=== PATIENT | female | born 1970 | race Caucasian/White ===

== ENCOUNTER → 2017-06-16 | Outpatient (CLI) | payer MEDICARE ==
[~2017-06-16] MED LIST: ADDERALL 20 MG20 MG PO; ATIVAN1 MG PO; BIRTH CONTROL; CIPROFLOXACIN500 M1 PO; DEXTROAMPHETAMIN5 M2 PO; DILTIAZEM ER180 M1 PO; FLAGYL500 MG PO; HYDROCODONE-AP1 EAC6 PO; HYDROXYCHLOROQ200 M1 PO; KEFLEX500 MG PO; KEPPRA 500 MG500 M1 PO; LYRICA; LYRICA 50 MG50 MG; LYRICA 50 MG50 MG PO; NAPROSYN375 MG PO; NORCO 5-325 TA1 EACH PO; OXYBUTYNIN 5 MG5 M2; OXYCODON-ACETA1 EAC1 PO; PHENAZOPYRIDIN200 M2 PO; PHENERGAN 25 MG25 M1 PO; PREDNISONE 5 MG5 M1 PO; SALAGEN5 MG; VIMPAT100 MG; WELLBUTRIN XL300 M1; WELLBUTRIN XL300 MG PO; ZANAFLEX4 MG PO
== END ==
LOC: M.MRI 14:30
DX: M47.22 Other spondylosis with radiculopathy, cervical region (principal); M48.02 Spinal stenosis, cervical region

== ENCOUNTER → 2017-10-13 | Outpatient (CLI) | payer MEDICARE | LOC: M.RAD 09-21 13:30 | DX: M25.561 Pain in right knee (principal); M25.562 Pain in left knee; N91.2 Amenorrhea, unspecified; Z78.0 Asymptomatic menopausal state ==

== ENCOUNTER 2017-10-15 21:42 | Emergency (ER) | payer MEDICARE, MEDICAID ==
[~2017-10-15] VITALS: Ht 162.6 cm; Wt 70.3 kg
[2017-10-16 00:48] VITALS: BP 138/81
== END 2017-10-16 00:49 | disposition home or self-care (01) ==
LOC: M.ERS 21:42
DX: M79.605 Pain in left leg (principal); R51 Headache; I10 Essential (primary) hypertension; Z88.2 Allergy status to sulfonamides

== ENCOUNTER → 2019-01-23 | Outpatient (CLI) | payer MEDICARE | LOC: M.RAD 01-18 12:48 | DX: S92.909 Unspecified fracture of unspecified foot (principal); Z78.0 Asymptomatic menopausal state; N91.2 Amenorrhea, unspecified; X58.XXXD Exposure to other specified factors, subsequent encounter ==